=== PATIENT | female | born 1960 | race Caucasian/White ===

== ENCOUNTER 2018-02-19 20:33 | Inpatient (IN) | payer MEDICAID ==
[~2018-02-19] VITALS: Ht 167.6 cm; Wt 124.4 kg
[2018-02-19 20:40] VITALS: Ht 167.6 cm; Wt 124.4 kg
[2018-02-19 21:22] LABS: BASOPHIL % 0.5 % (0-2); PLATELET COUNT 244 x10^3mcL (130-400); RED CELL DISTRIBUTION WIDTH 13.7 % (11.5-14.5)
[2018-02-19 21:26] LABS: CALCIUM 9.8 mg/dL (8.5-10.1); CARBON DIOXIDE 26.8 mmol/L (21-32); CHLORIDE SERUM 103 mmol/L (98-107); CREATININE SERUM 0.9 mg/dL (0.6-1.0); GFR1 > 60 mL/min; GLUCOSE SERUM 115 mg/dL (74-106); POTASSIUM SERUM 3.1 mmol/L (3.5-5.1); SODIUM SERUM 139 mmol/L (136-145)
[2018-02-19 21:30] LABS: ALKALINE PHOSPHATASE 95 U/L (46-116); BILIRUBIN TOTAL 0.6 mg/dL (0.20-1.00)
[2018-02-19 21:59] LABS: ALT/SGPT 31 U/L (14-59); AST/SGOT 27 U/L (15-37)
[2018-02-19 22:03] LABS: FREE T4 1.34 ng/dL (0.76-1.46)
[2018-02-19 22:14] LABS: ALBUMIN 3.8 g/dL (3.4-5.0); TOTAL PROTEIN, SERUM 7.4 g/dL (6.4-8.2)
[2018-02-19] MEDS ORDERED: BAYER ASPIRIN R81 MG PO (22:18)
[2018-02-19] MEDS ORDERED: COQ1050 MG PO (22:18)
[2018-02-19] MEDS ORDERED: SIMVASTATIN20 M1 PO (22:19)
[2018-02-19] MEDS ORDERED: TIROSINT150 MC1 PO (22:20)
[2018-02-19] MEDS ORDERED: BACLOFEN10 MG PO (22:20)
[2018-02-19] MEDS ORDERED: HYDROCHLOROTHIA25 MG PO (22:21)
[2018-02-19] MEDS ORDERED: ATENOLOL50 MG PO (22:21)
[2018-02-19] MEDS ORDERED: COZAAR100 MG PO (22:21)
[2018-02-19 23:27] LABS: UA SPECIFIC GRAVITY 1.025 (1.005-1.035); microscopic required? YES; urine erythrocyte NEGATIVE (NEGATIVE)
[2018-02-20 00:40] VITALS: BP 188/97
[2018-02-20 04:36] LABS: PLATELET COUNT 205 x10^3mcL (130-400); RED CELL DISTRIBUTION WIDTH 12.9 % (11.5-14.5)
[2018-02-20 04:37] LABS: BASOPHIL % 0.5 % (0-2)
[2018-02-20 05:02] LABS: AMYLASE 53 U/L (25-115); CHOLESTEROL 211 mg/dL (<200); CHOLESTEROL/HDL RATIO 6.4; HDL CHOLESTEROL 33 mg/dL (40-60); LIPASE 100 IU/L (73-393); MAGNESIUM 2.1 mg/dL (1.8-2.4); PHOSPHOROUS 2.8 mg/dL (2.5-4.9); TRIGLYCERIDES 847 mg/dL (<150)
[2018-02-20 05:10] LABS: T3 TOTAL 1.09 ng/mL
[2018-02-20 05:37] LABS: FREE T4 1.23 ng/dL (0.76-1.46); FREE THYROXINE INDEX 3.6 ug/dL (1.4-4.5); T4(THYROXINE) 9.5 ug/dL (4.7-13.3)
[2018-02-20 06:01] VITALS: BP 170/86
[2018-02-20 06:18] LABS: AMPHETAMINE QUAL UR NONE DETECTED (See below)
[2018-02-20 08:23] VITALS: BP 177/91
[2018-02-20 08:25] LABS: CALCIUM 10.2 mg/dL (8.5-10.1); CARBON DIOXIDE 23.2 mmol/L (21-32); CHLORIDE SERUM 107 mmol/L (98-107); CREATININE SERUM 0.9 mg/dL (0.6-1.0); GFR1 > 60 mL/min; GLUCOSE SERUM 111 mg/dL (74-106); MAGNESIUM 2.1 mg/dL (1.8-2.4); PHOSPHOROUS 2.9 mg/dL (2.5-4.9); POTASSIUM SERUM 3.2 mmol/L (3.5-5.1); SODIUM SERUM 142 mmol/L (136-145)
[2018-02-20 18:26] VITALS: BP 150/78
[2018-02-20 20:40] VITALS: BP 171/79
[2018-02-20 21:49] VITALS: BP 149/73
[2018-02-21 05:15] VITALS: BP 152/77
[2018-02-21 08:00] VITALS: BP 138/80
[2018-02-21 11:44] LABS: BASOPHIL % 0.9 % (0-2); PLATELET COUNT 231 x10^3mcL (130-400); RED CELL DISTRIBUTION WIDTH 13.3 % (11.5-14.5)
[2018-02-21 11:52] LABS: CALCIUM 11.1 mg/dL (8.5-10.1); CARBON DIOXIDE 28.7 mmol/L (21-32); CHLORIDE SERUM 105 mmol/L (98-107); CREATININE SERUM 0.9 mg/dL (0.6-1.0); GFR1 > 60 mL/min; GLUCOSE SERUM 102 mg/dL (74-106); POTASSIUM SERUM 3.5 mmol/L (3.5-5.1); SODIUM SERUM 143 mmol/L (136-145)
[2018-02-21 12:29] VITALS: BP 159/77
[2018-02-21 14:24] VITALS: BP 159/77
[2018-02-21] MEDS ORDERED: NORCO1 TA2 PO (14:46)
== END 2018-02-21 15:36 | disposition home or self-care (01) | DRG 199 ==
LOC: ED 20:33 → DU 23:42
PROVIDERS: Emergency Medicine; Internal Medicine
DX: I16.1 Hypertensive emergency (principal); N17.0 Acute kidney failure with tubular necrosis; M94.0 Chondrocostal junction syndrome [Tietze]; N39.0 Urinary tract infection, site not specified; E87.6 Hypokalemia; Z68.42 Body mass index [BMI] 45.0-49.9, adult; E78.5 Hyperlipidemia, unspecified; G47.00 Insomnia, unspecified; E03.9 Hypothyroidism, unspecified; E66.01 Morbid (severe) obesity due to excess calories; Z86.711 Personal history of pulmonary embolism; Z86.718 Personal history of other venous thrombosis and embolism
CPT/HCPCS: 83880; 84439; 85378; J7030; Q0092

== ENCOUNTER 2019-04-11 16:01 | Emergency (ER) | payer MEDICAID ==
[~2019-04-11] VITALS: Ht 167.6 cm; Wt 122.0 kg
[~2019-04-11 16:01] MED LIST: ATENOLOL50 MG PO; BACLOFEN10 MG PO; BAYER ASPIRIN R81 MG PO; COQ1050 MG PO; COZAAR100 MG PO; HYDROCHLOROTHIA25 MG PO; NORCO1 TA2 PO; SIMVASTATIN20 M1 PO; TIROSINT150 MC1 PO
[2019-04-11 16:06] VITALS: BP 144/76; Ht 167.6 cm; Wt 122.0 kg
== END 2019-04-11 18:09 | disposition home or self-care (01) ==
LOC: ED 16:01
DX: G44.209 Tension-type headache, unspecified, not intractable (principal); I10 Essential (primary) hypertension; Z88.8 Allergy status to other drugs, medicaments and biological substances; Z88.5 Allergy status to narcotic agent

== ENCOUNTER 2019-07-17 15:18 | Emergency (ER) | payer SELFPAY ==
[~2019-07-17] VITALS: Ht 167.6 cm; Wt 122.9 kg
[2019-07-17 15:39] VITALS: BP 107/57; Ht 167.6 cm; Wt 122.9 kg
== END 2019-07-17 18:54 | disposition home or self-care (01) ==
LOC: ED 15:18
DX: J40 Bronchitis, not specified as acute or chronic (principal); J32.9 Chronic sinusitis, unspecified; I10 Essential (primary) hypertension; Z88.5 Allergy status to narcotic agent; Z91.041 Radiographic dye allergy status
CPT/HCPCS: 87804